=== PATIENT | female | born 1985 | race African-American/Black ===

== ENCOUNTER 2017-11-30 03:50 | Emergency (ER) | payer BC ==
[2017-11-30] MEDS ORDERED: NA CHLORIDE 0.9% 2,000 ML ONE (04:38)
[2017-11-30 05:01] LABS: Barbiturates NEGATIVE (NEGATIVE); Benzodiazepines NEGATIVE (NEGATIVE); Cocaine NEGATIVE (NEGATIVE); METHAMPHETAM NEGATIVE (NEGATIVE); Methadone NEGATIVE (NEGATIVE); Opiates NEGATIVE (NEGATIVE); Phencyclidine NEGATIVE (NEGATIVE); THC Cannibis NEGATIVE (NEGATIVE)
[2017-11-30 06:07] LABS: Urine Blood 3+ (NEG); Urine Glucose NEGATIVE (NEG); Urine Protein NEGATIVE (NEG); Urine Specific Gravity 1.015 (1.005-1.030)
--- NOTE | 2017-11-30 06:31 | EDPHYS ---
Physician Documentation [facility] Name: Lynn Wilcox Age: 32 yrs Sex: Female : 1985 Arrival Date: 11/30/2017 Time: 03:58 Bed 16 Private MD: ED Physician Antonino Frank HPI: 11/30 04:26 This 32 yrs old Female presents to ER via EMS with complaints of Dizziness, Near pkl Syncope. 04:26 The patient presents with feeling faint, generalized weakness. Onset: The pkl symptoms/episode began/occurred this morning. Associated signs and symptoms: Pertinent positives: dehydration. Patient said she was bitten by mosquitoes and think this may have caused these symptoms. 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 - Social history:: Smoking status: Patient/guardian denies using tobacco, never smoked. - Ebola Screening: : No symptoms or risks identified at this time. ROS: 04:26 Eyes: Negative for injury, pain, redness, and discharge, ENT: Negative for injury, pkl pain, and discharge, Neck: Negative for injury, pain, and swelling, Cardiovascular: Negative for chest pain, palpitations, and edema, Respiratory: Negative for shortness of breath, cough, wheezing, and pleuritic chest pain, Abdomen/GI: Negative for abdominal pain, nausea, vomiting, diarrhea, and constipation, Back: Negative for injury and pain, : Negative for injury, bleeding, discharge, and swelling, MS/Extremity: Negative for injury and deformity. 04:26 Skin: Positive for mosquito bites. 04:26 Neuro: Positive for dizziness, weakness. Exam: 04:26 Head/Face: Normocephalic, atraumatic. Eyes: Pupils equal round and reactive to light, pkl extra-ocular motions intact. Lids and lashes normal. Conjunctiva and sclera are non-icteric and not injected. Cornea within normal limits. Periorbital areas with no swelling, redness, or edema. ENT: Nares patent. No nasal discharge, no septal abnormalities noted. Tympanic membranes are normal and external auditory canals are clear. Oropharynx with no redness, swelling, or masses, exudates, or evidence of obstruction, uvula midline. Mucous membranes moist. Neck: Trachea midline, no thyromegaly or masses palpated, and no cervical lymphadenopathy. Supple, full range of motion without nuchal rigidity, or vertebral point tenderness. No Meningismus. Chest/axilla: Normal chest wall appearance and motion. Nontender with no deformity. No lesions are appreciated. Cardiovascular: Regular rate and rhythm with a normal S1 and S2. No gallops, murmurs, or rubs. Normal PMI, no JVD. No pulse deficits. Respiratory: Lungs have equal breath sounds bilaterally, clear to auscultation and percussion. No rales, rhonchi or wheezes noted. No increased work of breathing, no retractions or nasal flaring. Abdomen/GI: Soft, non-tender, with normal bowel sounds. No distension or tympany. No guarding or rebound. No evidence of tenderness throughout. Back: No spinal tenderness. No costovertebral tenderness. Full range of motion. 04:26 Skin: mosquito bites noted. 04:26 Neuro: Orientation: is normal, Mentation: is normal, Cranial nerves: grossly normal, Motor: is normal. Vital Signs: 03:45 BP 112 / 89; Pulse 84; Resp 18 S; Temp 97.9(O); Pulse Ox 100% on R/A; Weight 61.23 kg; cc3 Height 5 ft. 7 in. (170.18 cm); Pain 0/10; 04:45 BP 104 / 76; Pulse 61; Resp 19 S; Pulse Ox 100% on R/A; cc3 05:05 BP 102 / 77; Pulse 72; Resp 20 S; Pulse Ox 100% on R/A; cc3 06:22 BP 100 / 65; Pulse 53; Resp 18 S; Pulse Ox 100% on R/A; cc3 07:30 BP 107 / 63; Pulse 58; Resp 16 S; Pulse Ox 98% on R/A; Pain 0/10; aa5 03:45 Body Mass Index 21.14 (61.23 kg, 170.18 cm) cc3 MDM: 04:15 Patient medically screened. pkl 06:28 Data reviewed: vital signs, nurses notes, lab test result(s). ED course: Patient pkl feeling better. Does not want any lab. and imaging studies done. Sign AMA. 11/30 04:23 Order name: XRAY Chest (1 view) pkl 11/30 04:23 Order name: UDS; Complete Time: 05:19 pkl 11/30 04:47 Order name: Urine Dipstick--Ancillary (enter results); Complete Time: 06:25 cc 11/30 04:47 Order name: Urine --Ancillary (enter results); Complete Time: 06:25 cc 11/30 04:23 Order name: EKG; Complete Time: 04:24 pkl 11/30 04:23 Order name: Cardiac monitoring; Complete Time: 04:24 pkl 11/30 04:23 Order name: EKG - Nurse/Tech; Complete Time: 04:24 pkl 11/30 04:23 Order name: IV Saline Lock; Complete Time: 04:24 pkl 11/30 04:23 Order name: O2 Per Protocol; Complete Time: 04:24 pkl 11/30 04:23 Order name: O2 Sat Monitoring; Complete Time: 04:24 pkl 11/30 04:47 Order name: Urine Dipstick-Ancillary (obtain specimen); Complete Time: 04:47 cc 11/30 04:47 Order name: Urine Test (obtain specimen); Complete Time: 04:47 cc Administered Medications: 04:30 Drug: NS 0.9% 1000 ml Route: IV; Rate: 1000 ml; Site: right antecubital; cc3 05:10 Follow up: Response: No adverse reaction; IV Status: Completed infusion; IV Intake: cc3 1000ml 05:12 Drug: NS 0.9% 1000 ml Route: IV; Rate: 125 ml/hr; Site: right antecubital; cc3 07:15 Follow up: Fluids infusing as bolus per Dr. Zac FORBES aa5 08:10 Follow up: IV Status: Completed infusion aa5 Disposition: 11/30/17 06:30 Patient has left against medical advice. Impression: Syncopal episodes. Dehydration. - Patients states they are going to Home. - Condition is Stable. Follow up: Private Physician; When: 1 - 2 days; Reason: Re-evaluation by your physician. - Problem is new. - Symptoms have improved. Signatures: Dispatcher [employer] EDMS Antonino Frank MD MD pkl Tayla Brown RN RN aa5 Tess Barraza Charlene cc3 Corrections: (The following items were deleted from the chart) 05:08 04:26 Head Brain Wo Cont+CT.RAD.BRZ ordered. EDVA EDMS 07:01 04:23 Labs collected and sent ordered. elsy cc3 08:43 06:30 11/30/2017 06:30 Patients has left against medical advice. Impression: Syncopal aa5 episodes. Dehydration. Patient states they are going to Home. Condition is Stable. Follow up: Private Physician; When: 1 - 2 days; Reason: Re-evaluation by your physician. Problem is new. Symptoms have improved. pkl
--- NOTE | 2017-11-30 06:31 | ER ---
Nurse's Notes [facility] Name: Lynn Wilcox Age: 32 yrs Sex: Female : 1985 Arrival Date: 11/30/2017 Time: 03:58 Bed 16 Private MD: Diagnosis: Syncopal episodes. Dehydration Presentation: 11/30 03:45 Presenting complaint: EMS states: dizziness and near syncope episodes since early this cc3 morning. Transition of care: [facility]. Onset of symptoms was November 30, 2017. Risk Assessment: Do you want to hurt yourself or someone else? Patient reports no desire to harm self or others. Initial Sepsis Screen: Does the patient meet any 2 criteria? No. Patient's initial sepsis screen is negative. Does the patient have a suspected source of infection? No. Patient's initial sepsis screen is negative. Care prior to arrival: Medication(s) given: received beta-panchito 45 minutes ago prior to arrival. 03:45 Method Of Arrival: EMS: [facility] cc3 03:45 Acuity: NIR 3 cc3 Triage Assessment: 03:45 General: Appears in no apparent distress. comfortable, Behavior is calm, cooperative, cc3 appropriate for age. Pain: Denies pain. EENT: No signs and/or symptoms were reported regarding the EENT system. Neuro: Level of Consciousness is awake, alert, obeys commands, Oriented to person, place, time, situation, Appropriate for age. Cardiovascular: Reports dizziness and near syncope episode Denies chest pain, Capillary refill < 3 seconds Patient's skin is warm and dry. Respiratory: Airway is patent Respiratory effort is even, unlabored, Respiratory pattern is regular, symmetrical. GI: Abdomen is flat, non-distended. : No signs and/or symptoms were reported regarding the genitourinary system. Derm: No signs and/or symptoms reported regarding the dermatologic system. Musculoskeletal: Circulation, motion, and sensation intact. Range of motion: intact in all extremities. 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 - Social history:: Smoking status: Patient/guardian denies using tobacco, never smoked. - Ebola Screening: : No symptoms or risks identified at this time. Screenin:45 Abuse screen: Denies threats or abuse. Denies injuries from another. Nutritional cc3 screening: No deficits noted. Tuberculosis screening: No symptoms or risk factors identified. Fall Risk Ambulatory Aid- None/Bed Rest/Nurse Assist (0 pts). Gait- Normal/Bed Rest/Wheelchair (0 pts) Mental Status- Oriented to own ability (0 pts). Assessment: 03:45 General: see triage note. cc3 04:25 Reassessment: Patient appears in no apparent distress at this time. Patient and/or cc3 family updated on plan of care and expected duration. Pain level reassessed. Patient is alert, oriented x 3, equal unlabored respirations, skin warm/dry/pink. Patient refuses blood extraction as of the meantime, informed Dr. Frank and said it can be done later. 05:00 Reassessment: Patient appears in no apparent distress at this time. Patient and/or cc3 family updated on plan of care and expected duration. Pain level reassessed. Patient is alert, oriented x 3, equal unlabored respirations, skin warm/dry/pink. Patient refused for CT scan of head brain without contrast to be done, Dr. Frank informed. 05:13 Reassessment: Patient still refuses for blood extraction, she states that she spoke cc3 with her private physician and was told that she don't need any blood examination and just intravenous fluid hydration, Dr. Frank informed. Patient denies pain at this time. Patient states feeling better. 06:18 Reassessment: Patient appears in no apparent distress at this time. Patient and/or cc3 family updated on plan of care and expected duration. Pain level reassessed. Patient is alert, oriented x 3, equal unlabored respirations, skin warm/dry/pink. Patient comfortably sleeping, kept undisturbed. 06:28 Reassessment: Dr. Frank visited the patient and was told to give the ongoing IV fluid cc3 maintenance as bolus then let the patient decide after the bolus if she still wants to stay in the hospital and if not to let her sign an against medical advice form, charge nurse Mis informed. 06:30 Reassessment: Patient wants to sign AMA form after the fluid bolus, Dr. Frank and charge cc3 nurse Mis informed. 07:00 Reassessment: Handed over the patient to morning shift KORINA Bourne, still for AMA form cc3 signature after fluid bolus. 07:15 Reassessment: Pt resting in bed with eyes closed, respirations even and unlabored, skin aa5 is normal/warm/dry. Fluids infusing freely. . 08:15 Neuro: Level of Consciousness is awake, alert, obeys commands, Oriented to person, aa5 place, time, situation. Respiratory: Airway is patent Respiratory effort is even, unlabored, Respiratory pattern is regular, symmetrical. Derm: Skin is dry, Skin is normal, Skin temperature is warm. Vital Signs: 03:45 BP 112 / 89; Pulse 84; Resp 18 S; Temp 97.9(O); Pulse Ox 100% on R/A; Weight 61.23 kg; cc3 Height 5 ft. 7 in. (170.18 cm); Pain 0/10; 04:45 BP 104 / 76; Pulse 61; Resp 19 S; Pulse Ox 100% on R/A; cc3 05:05 BP 102 / 77; Pulse 72; Resp 20 S; Pulse Ox 100% on R/A; cc3 06:22 BP 100 / 65; Pulse 53; Resp 18 S; Pulse Ox 100% on R/A; cc3 07:30 BP 107 / 63; Pulse 58; Resp 16 S; Pulse Ox 98% on R/A; Pain 0/10; aa5 03:45 Body Mass Index 21.14 (61.23 kg, 170.18 cm) cc3 ED Course: 03:45 Patient has correct armband on for positive identification. Placed in gown. Bed in low cc3 position. Call light in reach. Side rails up X2. desk monitor on. Pulse ox on. NIBP on. 03:45 Maintain EMS IV. Dressing intact. Good blood return noted. Site clean \T\ dry. Gauge \T\ cc 3 site: 22 at the right antecubital vein. 03:50 Arm band placed on right wrist. cc3 03:58 Patient arrived in ED. ds1 04:01 Renita Westfall is Primary Nurse. cc3 04:09 Triage completed. cc3 04:15 Antonino Frank MD is Attending Physician. pk 04:55 Radiology exam delayed due to lab results not completed at this time. (HCG). jg6 05:03 Note: Patient refused CT Head W/O exam. Will cancel exam as advised per Dr. Frank.. jg6 05:07 XRAY Chest (1 view) In Process Unspecified. EDMS 07:07 Report given to KORINA Bourne. cc3 07:07 Report received from KORINA Maravilla. aa5 07:15 No provider procedures requiring assistance completed. aa5 08:15 IV discontinued, intact, bleeding controlled, No redness/swelling at site. Pressure aa5 dressing applied. Administered Medications: 04:30 Drug: NS 0.9% 1000 ml Route: IV; Rate: 1000 ml; Site: right antecubital; cc3 05:10 Follow up: Response: No adverse reaction; IV Status: Completed infusion; IV Intake: cc3 1000ml 05:12 Drug: NS 0.9% 1000 ml Route: IV; Rate: 125 ml/hr; Site: right antecubital; cc3 07:15 Follow up: Fluids infusing as bolus per Dr. Frank VO. aa5 08:10 Follow up: IV Status: Completed infusion aa5 Intake: 05:10 IV: 1000ml; Total: 1000ml. cc3 Outcome: 08:20 AMA AMA form signed aa5 08:20 Condition: stable 08:30 Patient left the ED. aa5 Signatures: Dispatcher [employer] EDAntonino Lynch MD MD [facility] Cristy Bah ds1 Tayla Brown RN RN aa5 Renita Westfall cc3 Mahi Gomez jg6 Corrections: (The following items were deleted from the chart) 04:55 03:50 Arm band placed on right wrist. cc3 cc3 05:05 05:00 Reassessment: Patient appears in no apparent distress at this time. Patient cc3 and/or family updated on plan of care and expected duration. Pain level reassessed. Patient is alert, oriented x 3, equal unlabored respirations, skin warm/dry/pink. Patient refused for CT scan head to be done, Dr. Frank informed. cc3 06:32 06:28 Reassessment: Dr. Frank visited the patient and was told to give the ongoing IV cc3 fluid maintenance as bolus then let the patient decide after the bolus if she still wants to stay in the hospital and if not to let her sign an against medical advice form. cc3 08:47 08:43 Patient left the ED. aa5 aa5
--- NOTE | 2017-11-30 07:49 | EKG ---
Test Date: 2017-11-30 Test Time: 04:09:41 Complex Manager: LUCA MEASUREMENT RESULTS: Intervals: Rate: 64 SC: 146 QRSD: 88 QT: 396 QTc: 408 Vesta: P: 69 SC: 146 QRS: 76 T: 72 INTERPRETIVE STATEMENTS: Normal sinus rhythm with sinus arrhythmia Normal ECG No previous ECG available for comparison Electronically Signed On 11-30-17 07:48:37 CDT by Daniel Harden
--- NOTE | 2017-11-30 09:30 | RAD REPORT ---
EXAM DESCRIPTION: Rachelle Single View11/30/2017 5:07 am CLINICAL HISTORY: Chest pain COMPARISON: none FINDINGS: The lungs appear clear of acute infiltrate. The heart is normal size IMPRESSION: No acute abnormalities displayed
== END 2017-11-30 08:43 | disposition left against medical advice (07) ==
LOC: ER 03:50
DX: R55 Syncope and collapse (principal); E86.0 Dehydration; Z88.6 Allergy status to analgesic agent; Z88.0 Allergy status to penicillin
CPT/HCPCS: 71045; 80307; 81003; 81025; 93005; 96360; 96361; 99284; J7030